=== PATIENT | male | born 1950 | race Caucasian/White ===

== ENCOUNTER 2017-04-06 12:40 | Emergency (ER) | payer MEDICARE, OTHER ==
[2017-04-06] MEDS ORDERED: Pantoprazole 40 MG Vial IVPUSH ONE (13:12)
[2017-04-06] MEDS ORDERED: methylPREDNISolone Sodium Succinate 125 MG/2 ML SDV IVPUSH ONE (13:15)
[2017-04-06] MEDS ORDERED: diphenhydrAMINE 50 MG/ML SDV IVPUSH ONE (13:15)
[2017-04-06] MEDS ORDERED: Sodium Chloride 0.9% 1,000 ML IV SCH (13:30)
--- NOTE | 2017-04-08 12:27 | ER ---
DATE SEEN: 04/06/2017 TIME SEEN: The patient was seen at 1250 hours HISTORY OF PRESENT ILLNESS: The patient is working at [employer]. 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 He wonders if he is allergic or reacted to spices. He denies shortness of breath. No nausea, vomiting, lightheadedness, chest pain, wheezing or syncope, near syncope, or back pain, arm pain, jaw pain, neck pain. The patient is otherwise healthy. He has history of hypertension. MEDICATIONS: He takes lisinopril and Protonix 40 mg daily, and simvastatin, Zocor, and fluoxetine for depression 40 mg daily. ALLERGIES: Meloxicam and sulfa antibiotics. REVIEW OF SYSTEMS: HEENT: Negative except for decreased hearing. He wears glasses. RESPIRATORY: No shortness of breath. No cough. HEART: No chest pain, no irregular heartbeat. ABDOMEN: No abdominal discomfort. No gastroparesis, no GERD. However, he is being treated for GERD presently, so it is under control. No back pain. No abdominal pain. No nausea, vomiting, diarrhea, or blood in the stool, or black tarry stools. EXTREMITIES: No musculoskeletal weakness or arthritis presently. PSYCH: Has depression. PHYSICAL EXAMINATION: VITAL SIGNS: Blood pressure not on chart. Alert man. He has markedly swollen lips. No difficulty breathing. He is alert and responsive. Denies any pain. No chest pain. HEENT: TMs negative. Pharynx, moderate lip edema. Tongue without edema. Pharynx without edema. Uvula negative. Uvula midline. No difficulty swallowing or breathing. No wheezes. No stridor. LUNGS: Clear to auscultation without rales, rhonchi, or wheezes. HEART: S1, S2. No murmur. No irregular rate or rhythm. Chest wall nontender. No intercostal retraction. No accessory muscle respiration or supraclavicular retraction. No sentinel nodes noted. ABDOMEN: Soft. No guarding. No abdominal discomfort. EXTREMITIES: Without edema. Deep tendon reflexes in upper and lower extremities symmetrical 1+, normoactive. Cranial nerves 2 through 12 intact. No pronator drift. No paresis. No asterixis. ASSESSMENT: 1. Angioedema of lips secondary to lisinopril, I am 97% certain. I do not feel this was spices. 2. No evidence for respiratory embarrassment or compromised respiratory status. 3. History of hypertension. History of depression. No diabetes. PLAN: The patient was given a dose of Protonix 40 mg, Benadryl 50 mg, Solu- Medrol 125 mg IV. He has maybe 5% to 10% improvement of his lips. Still they are swollen, it is less engorged and less pink. Lips are pallor. He received epinephrine shot in the walk-in clinic. They felt his heart rate is fast, but presently is heart rate is 60 per minute. Reassured the patient. He is to follow up with doctor in a week regarding his blood pressure, if he has any problems, earlier. Take one dose of Protonix 40 mg, Benadryl 50 mg q.i.d. for one day, prednisone 20 mg daily for one day and follow up with the doctor this week. /[id number]
== END 2017-04-06 14:20 | disposition home or self-care (01) ==
LOC: FB.ED 12:40
DX: T78.3XXA Angioneurotic edema, initial encounter (principal); I10 Essential (primary) hypertension; R22.0 Localized swelling, mass and lump, head; T78.40XA Allergy, unspecified, initial encounter
CPT/HCPCS: 96361; 96372; 96374; 96375; 99203; 99282; C9113; J0171; J1200; J2930; J7040; 99283